=== PATIENT | male | born 1950 | race Caucasian/White ===

== ENCOUNTER → 2019-09-28 | Outpatient (CLI) | payer OTHER ==
[~2019-09-28] MED LIST: CHILDREN'S ASPI81 MG PO; COLESTID1 GM PO; FLEXERIL PO; LIPITOR10 MG PO; OXYCONTIN10 M1 PO; PLAVIX 75 MG TA75 M1 PO; VENLAFAXIN75 MG/1 T2 PO; ZESTRIL10 MG PO
== END ==
LOC: SJCVC 09:56
DX: R06.00 Dyspnea, unspecified (principal); I73.9 Peripheral vascular disease, unspecified; I10 Essential (primary) hypertension; E78.00 Pure hypercholesterolemia, unspecified

== ENCOUNTER → 2019-10-12 | Outpatient (CLI) | payer OTHER ==
[~2019-10-12] MED LIST changes: +FENOFIBRATE160 MG PO; +SUPER THERAVIT1 EACH PO; +VENLAFAXINE HC150 MG PO
== END ==
LOC: SJCVCIMAG 08:53
PROVIDERS: ATTEND Internal Medicine Cardiovascular Disease
DX: R06.00 Dyspnea, unspecified (principal); I10 Essential (primary) hypertension; E78.5 Hyperlipidemia, unspecified; I73.9 Peripheral vascular disease, unspecified; E78.00 Pure hypercholesterolemia, unspecified; Z82.49 Family history of ischemic heart disease and other diseases of the circulatory system; Z87.891 Personal history of nicotine dependence; Z79.82 Long term (current) use of aspirin; Z79.899 Other long term (current) drug therapy

== ENCOUNTER → 2019-10-20 | Outpatient (CLI) | payer OTHER ==
[~2019-10-20] VITALS: Ht 170.2 cm; Wt 72.6 kg
[2019-10-20 11:11] VITALS: BP 158/61
--- NOTE | 2019-10-20 13:39 | CATHLAB ---
[facility] [place] [address] [place] [address] INVASIVE PROCEDURE REPORT Name: CHANTEL HENSLEY Room #: REG [facility]IE [facility].#: [id number] Admission: 10/20/19 Attend Phys: Balwinder Hernandez MD Discharge: Date of : 54 Report #: [id number] THIS REPORT FOR: cc: Azra Berg MD, Martha M. MD Park, Jin S. MD ~ APPROVED REPORT Study performed: 10/20/2019 12:08:29 Patient Details Patient Status: Out-Patient Room #: The patient is a 69 year-old male Event Personnel Balwinder Hernandez Shade Bander, Susan Ross RN RN, Maddison Gee Paschal, Ja'net RTR Monitor Procedures Performed Left Heart Cath w/or w/o Coronaries [id number] [facility] Art Access - R femoral artery* 91144 Initial Mod Sed Same Phys/QHP Gr5y [id number] Hemostasis with Manual pressure Indication Dyspnea, Positive stress test Risk Factors Peripheral Vascular Disease, Hypercholesterolemia, Hypertension, Tobacco History () Previous Procedures/Diagnoses Previous Femoral Procedure Procedure Narrative The patient was brought electively to the Cardiac Catheterization Laboratory and was prepped and draped in a sterile manner. The Right Groin^ was infiltrated with 1% Lidocaine subcutaneous anesthesia. A PINNACLE 4FR Sheath #[id number] sheath was inserted into the RFA^. Coronary angiography was performed using coronary diagnostic catheters. The right coronary system was accessed and visualized with a JR4 catheter. The left coronary system was accessed and visualized with a JL4 catheter. The left ventricle was accessed and visualized with a PIGTAIL catheter. Hemostasis was obtained with manual pressure following sheath removal without any complications. The patient [facility] [address] [place] [address] INVASIVE PROCEDURE REPORT Name: SHELLIECHANTELANNAMARIE DACOSTA Room #: REG CL [facility]#: [id number] Admission: 10/20/19 Attend Phys: Balwinder Hernandez MD Discharge: Date of : 54 Report #: [id number] tolerated the procedure well and there were no complications associated with the procedure. Intraoperative Conscious Sedation Sedation start time: 12:39 Case end Time: 13:04 Fentanyl 50 mcg Versed 1 mg Fluoro Time: 2.20 minutes Dose: DAP 2688.00 cGycm2 640 mGy Contrast Type and Amount: Omnipaque 75 ml Coronary Angiography The patient's coronary anatomy is right dominant. Diagnostic Cath Left Main This is a large-caliber vessel with mild diffuse disease in the midsegment, less than 20%. LAD There is a moderate-sized caliber vessel, traverses the anterior wall and wraps around the apex. There is mild disease in the midsegment, less than 20%. Diagonal 1 The first diagonal artery divides into 2 branches. There are no flow-limiting lesions. Circumflex Supplies 2 obtuse marginal arteries. OM1 This is a moderate-sized caliber vessel, with mild disease proximally. OM2 This is a small caliber vessel, with no flow-limiting lesions. Right Coronary The RCA is a dominant vessel with mild disease in the proximal segment, less than 20%. R PDA This is a patent vessel, with no flow-limiting lesions. RPLV This is a small caliber vessel, with mild disease proximally. Left Ventriculography Left Ventriculography was not performed. Ejection Fraction was 55-60% based off patient's Nuclear Cardiac Stress Test. An LVEDP was measured and there is no gradient across the outflow tract. Hemodynamics The aortic pressure is 163/74 mmHg with a mean of mmHg. The left ventricular pressure is 163/13 mmHg with a mean of mmHg. The left ventricular end diastolic pressure is 19 mmHg. Pullback from the left ventricle to the aorta revealed no gradient across the aortic [facility] [address] [place] [address] INVASIVE PROCEDURE REPORT Name: SHELLIECHANTEL SHINTO Room #: REG CL [facility]#: [id number] Admission: 10/20/19 Attend Phys: Balwinder Hernandez MD Discharge: Date of : 54 Report #: [id number] valve. Conclusion 1. Mild, nonobstructive coronary artery disease. 2. Normal LV systolic function. 3. Recommend guideline directed medical therapy. <ELECTRONICALLY SIGNED> By: Balwinder Hernandez MD 10/20/191337 37 37 Balwinder Hernandez MD /INF
--- NOTE | 2019-10-20 15:14 | NUR ---
pt up in hallway, ambulated to restroom without incident. R groin remains stable.
--- NOTE | 2019-10-20 15:52 | EKG ---
[facility] [place] [address] ELECTROCARDIOGRAM REPORT Name: CHANTEL HENSLEY Room #: REG [facility].#: [id number] Admission: 10/20/19 Attend Phys: Balwinder Hernandez MD Discharge: Date of : 54 Report #: [id number] THIS REPORT FOR: cc: Azra Berg MD, Martha M. MD Couchonnal, Luis F. MD ~ THIS REPORT FOR: //name// [facility] Test Date: 2019-10-20 Test Time: 11:14:13 Pat Name: CHANTEL HENSLEY Department: Room: Gender: Real Estate Sales Manager: Lisa HUFFMAN : 1950 Requested By: Balwinder Hernandez Order Number: [id number] MD: Yosef Baugh Measurements Intervals [place] Rate: 74 P: 44 FL: 151 QRS: 48 QRSD: 77 T: 51 QT: 349 QTc: 388 Interpretive Statements Sinus rhythm Compared to ECG 01/14/2000 22:10:40 Sinus bradycardia no longer present Electronically Signed On 10-20-2019 15:51:15 CDT by Yosef Baugh [email or web address] <ELECTRONICALLY SIGNED> By: Yosef Baugh MD 10/20/19 1551 1114 1114 Yosef Baugh MD /EPI
== END | disposition home or self-care (01) ==
LOC: CATH 09:35
PROVIDERS: ATTEND Internal Medicine Cardiovascular Disease
DX: R94.39 Abnormal result of other cardiovascular function study (principal); I25.10 Atherosclerotic heart disease of native coronary artery without angina pectoris; R06.00 Dyspnea, unspecified; I10 Essential (primary) hypertension; E78.00 Pure hypercholesterolemia, unspecified; I73.9 Peripheral vascular disease, unspecified; E78.5 Hyperlipidemia, unspecified; Z98.890 Other specified postprocedural states; Z79.899 Other long term (current) drug therapy; Z79.82 Long term (current) use of aspirin

== ENCOUNTER → 2021-06-11 | Outpatient (CLI) | payer OTHER | LOC: SJCVC 14:11 | PROVIDERS: ATTEND Internal Medicine Cardiovascular Disease | DX: R94.31 Abnormal electrocardiogram [ECG] [EKG] (principal); I10 Essential (primary) hypertension; R06.00 Dyspnea, unspecified; E78.00 Pure hypercholesterolemia, unspecified; I73.9 Peripheral vascular disease, unspecified; C44.90 Unspecified malignant neoplasm of skin, unspecified; Z79.82 Long term (current) use of aspirin; Z96.651 Presence of right artificial knee joint; Z87.891 Personal history of nicotine dependence; Z88.8 Allergy status to other drugs, medicaments and biological substances; Z79.899 Other long term (current) drug therapy ==